=== PATIENT | male | born 1990 | race Caucasian/White ===

== ENCOUNTER 2019-02-15 11:55 | Emergency (ER) | payer MEDICAID ==
[~2019-02-15] VITALS: Ht 175.3 cm; Wt 100.0 kg
[2019-02-15 11:59] VITALS: BP 166/64; Ht 175.3 cm; Wt 100.0 kg
[2019-02-15] MEDS ORDERED: [UNRECOGNIZED DRUG - OTHER] (12:01)
== END 2019-02-15 12:03 | disposition left against medical advice (07) ==
LOC: D.ER 11:55
DX: R45.851 Suicidal ideations (principal)